=== PATIENT | male | born 1970 | race Caucasian/White ===

== ENCOUNTER 2020-12-23 10:31 | Emergency (ER) | payer OTHER ==
[~2020-12-23] VITALS: Ht 177.8 cm; Wt 81.6 kg
[2020-12-23] MEDS ORDERED: JANUMET 50-1,01 EACH PO (10:47)
== END 2020-12-23 16:51 | disposition home or self-care (01) ==
LOC: ER 10:31
DX: K52.9 Noninfective gastroenteritis and colitis, unspecified (principal); A04.9 Bacterial intestinal infection, unspecified; I10 Essential (primary) hypertension

== ENCOUNTER 2022-09-10 06:10 | Day surgery (SDC) | payer OTHER ==
[~2022-09-10 06:10] MED LIST: JANUMET 50-1,01 EACH PO
== END 2022-09-10 11:05 | disposition home or self-care (01) ==
LOC: AMB-ENDOS 06:10
PROVIDERS: ATTEND Colon & Rectal Surgery
DX: D12.2 Benign neoplasm of ascending colon (principal); D12.4 Benign neoplasm of descending colon; D12.3 Benign neoplasm of transverse colon; K57.30 Diverticulosis of large intestine without perforation or abscess without bleeding; R19.4 Change in bowel habit